=== PATIENT | male | born 1940 | race Caucasian/White ===

== ENCOUNTER → 2017-08-17 | Outpatient (CLI) | payer MEDICARE ==
[~2017-08-17] MED LIST: ASPI-555 PO
[2017-08-17 14:11] LABS: CREATININE 0.8 mg/dL (0.5-1.5)
== END | disposition home or self-care (01) ==
LOC: RAH 12:39
PROVIDERS: ATTEND Urology
DX: C61 Malignant neoplasm of prostate (principal)
CPT/HCPCS: 36415; 78306; 82565; 84520; A9503

== ENCOUNTER → 2017-08-21 | Outpatient (CLI) | payer MEDICARE ==
[~2017-08-21] MED LIST changes: +IOPAMIDOL-370 75 ML VIAL IV ONE
== END | disposition home or self-care (01) ==
LOC: RAH 08:41
PROVIDERS: ATTEND Urology
DX: C61 Malignant neoplasm of prostate (principal); K57.30 Diverticulosis of large intestine without perforation or abscess without bleeding; K76.0 Fatty (change of) liver, not elsewhere classified; N28.1 Cyst of kidney, acquired
CPT/HCPCS: 74177; Q9967

== ENCOUNTER 2017-10-10 03:43 | Inpatient (IN) | payer MEDICARE ==
[~2017-10-10] VITALS: Ht 177.8 cm; Wt 94.8 kg
[~2017-10-10 03:43] MED LIST changes: -IOPAMIDOL-370 75 ML VIAL IV ONE
[2017-10-10] MEDS ORDERED: SODIUM CHLORIDE 0.9% 1000ML 1,000 ML IV ONE ×2 (03:59→11:50)
[2017-10-10] MEDS ORDERED: ONDANSETRON HCL 4 MG/2 ML VIAL ONE ×3 (03:59→08:03)
[2017-10-10 04:06] LABS: BASOPHILS % (AUTO) 0.2 % (0.0-5.0); EOSINOPHILS % (AUTO) 0.9 % (0.0-8.0); HEMATOCRIT 38.6 % (42-54); LYMPHOCYTES % (AUTO) 8.1 % (21.0-51.0); MEAN CORPUSCULAR HEMOGLOBIN 33.4 pg (27.0-33.0); MEAN CORPUSCULAR HGB CONC 35.1 g/dL (32.0-36.0); MEAN CORPUSCULAR VOLUME 95.4 fL (79-99); MONOCYTES % (AUTO) 7.2 % (3.0-13.0); NEUTROPHILS % (AUTO) 83.6 % (40.0-77.0); PLATELET COUNT (AUTO) 169 K/uL (130-400); RED BLOOD CELL COUNT(AUTO) 4.05 MIL/uL (4.50-6.20); RED CELL DISTRIBUTION WIDTH 12.7 % (11.0-15.5)
[2017-10-10 04:30] LABS: INR 0.95 (0.85-1.15); PARTIAL THROMBOPLASTIN TIME 24.2 SEC (26.3-35.5)
[2017-10-10 04:32] LABS: B-TYPE NATRIURETIC PEPTIDE 19 pg/mL (0-100)
[2017-10-10] MEDS ORDERED: MORPHINE SULFATE 2 MG/ML 1ML SYG ONE (04:37)
[2017-10-10 04:39] LABS: CARBON DIOXIDE 20 mmol/L (21-32); CHLORIDE 100 mmol/L (101-111); CREATININE 0.7 mg/dL (0.5-1.5); GLOMERULAR FILTR. RATE CALC 116 mL/min (>60); GLUCOSE,RANDOM 164 mg/dL (70-105); POTASSIUM 5.1 mmol/L (3.5-5.1); SODIUM SERUM 135 mmol/L (136-145); UREA NITROGEN, BLOOD 17 mg/dL (7-18)
[2017-10-10 04:55] LABS: ALANINE AMINOTRANSFERASE 31 U/L (12-78); ALBUMIN 3.9 g/dL (3.5-5.0); ASPARTATE AMINOTRANSFERASE 34 U/L (10-37); BILIRUBIN,TOTAL 0.6 mg/dL (0.2-1.0); CREATINE KINASE MB < 0.5 ng/mL (0.5-3.6); CREATINE KINASE, TOTAL 115 U/L (21-232); MYOGLOBIN 25 ng/mL (10-92)
[2017-10-10] MEDS ORDERED: MORPHINE SULFATE 8 MG/ML VIAL ONE (08:04)
[2017-10-10] MEDS ORDERED: METRONIDAZOLE 500MG/100ML BAG 100 ML ONE (11:50)
[2017-10-10] MEDS ORDERED: LEVOFLOXACIN 500 MG/D5W 100 ML 100 ML ONE (11:50)
[2017-10-10 18:15] VITALS: BP 170/65
[2017-10-10 20:28] VITALS: BP 148/67
[2017-10-10] MEDS ORDERED: MORPHINE SULFATE 2 MG/ML 1ML SYG IVP PRN (21:45)
[2017-10-11] VITALS (24 sets, daily range): BP systolic 108–152; BP diastolic 56–87
[2017-10-11] MEDS: METRONIDAZOLE 500MG/100ML BAG 100 ML IVPB SCH ×4 (00:11→22:36)
[2017-10-11] MEDS: SODIUM CHLORIDE 0.9% 1000ML 1,000 ML IV SCH ×3 (00:11→17:15)
[2017-10-11] MEDS ORDERED: ONDANSETRON HCL 4 MG/2 ML VIAL IVP PRN (02:15)
[2017-10-11 05:36] LABS: HEMATOCRIT 34.3 % (42-54); MEAN CORPUSCULAR HEMOGLOBIN 34.8 pg (27.0-33.0); MEAN CORPUSCULAR HGB CONC 36.3 g/dL (32.0-36.0); NUCLEATED RED BLOOD CELLS 0.1 % (0.0-0.19); PLATELET COUNT (AUTO) 168 K/uL (130-400); RED BLOOD CELL COUNT(AUTO) 3.57 MIL/uL (4.50-6.20); RED CELL DISTRIBUTION WIDTH 12.7 % (11.0-15.5); WHITE BLOOD COUNT (AUTO) 8.4 K/uL (4.8-10.8)
[2017-10-11 05:53] LABS: CREATININE 0.8 mg/dL (0.5-1.5); POTASSIUM 3.9 mmol/L (3.5-5.1)
[2017-10-11 06:11] LABS: BAND NEUTROPHILS % (MANUAL) 1 % (0-2); EOSINOPHILS % (MANUAL) 4 % (1-6); LYMPHOCYTES % (MANUAL) 9 % (22-44); MAN.DIFF COMMENT-IMPRESSION MANUAL DIFFERENTIAL; MONOCYTES % (MANUAL) 8 % (2-9); PLATELET MORPHOLOGY COMMENT ADEQUATE; SEGMENTED NEUTROPHILS % 78 % (40-70)
[2017-10-11] MEDS ORDERED: BUPIVACAINE/EPI/PF 0.5% 30ML VIAL IJ SCH (10:45)
[2017-10-11] MEDS: LEVOFLOXACIN 500 MG/D5W 100 ML 100 ML IV SCH (12:06)
[2017-10-11] MEDS ORDERED: ONDANSETRON HCL 4 MG/2 ML VIAL ONE (12:16)
[2017-10-11] MEDS ORDERED: DEXAMETHASONE SOD PHOSPHATE 10MG/ML 1ML VIAL ONE (12:16)
[2017-10-11] MEDS ORDERED: SUCCINYLCHOLINE 200MG/10ML SYR ONE (12:16)
[2017-10-11] MEDS ORDERED: LIDOCAINE PF 2% 5ML ABBOJECT ONE (12:16)
[2017-10-11] MEDS ORDERED: GLYCOPYRROLATE 0.2 MG/ML 5 ML VIAL ONE (12:16)
[2017-10-11] MEDS ORDERED: FENTANYL CITRATE PF 50 MCG/1 ML 2ML VIAL ONE ×2 (12:16→16:33)
[2017-10-11] MEDS ORDERED: PROPOFOL 10 MG/ML 20ML VIAL IV ONE (12:17)
[2017-10-11] MEDS ORDERED: MIDAZOLAM HCL 1 MG/ML 2ML VIAL ONE (12:17)
[2017-10-11] MEDS ORDERED: EPINEPHRINE 1 MG/ML AMPULE ONE (14:31)
[2017-10-11] MEDS ORDERED: BUPIVACAINE/PF 0.5% 30ML VIAL ONE (14:31)
[2017-10-11] MEDS ORDERED: ISOVUE-370 50ML VIAL IV ONE (15:55)
[2017-10-11] MEDS ORDERED: ACETAMINOPHEN 325 MG TAB PO PRN (19:45)
[2017-10-11] MEDS ORDERED: MEPERIDINE HCL/PF 25 MG/ML 1ML VIAL IV PRN (19:45)
[2017-10-11] MEDS ORDERED: TRAMADOL HCL 50 MG TABLET PO PRN ×2 (19:45)
[2017-10-11] MEDS ORDERED: MEPERIDINE HCL/PF 25 MG/0.5 ML AMPUL IV PRN (19:52)
[2017-10-11] MEDS: DOCUSATE SODIUM 100 MG CAP PO SCH (20:32)
[2017-10-12] VITALS: BP 127/66
[2017-10-12] MEDS: SODIUM CHLORIDE 0.9% 1000ML 1,000 ML IV SCH (00:08)
[2017-10-12 04:00] VITALS: BP 137/71
[2017-10-12] MEDS: METRONIDAZOLE 500MG/100ML BAG 100 ML IVPB SCH (05:36)
[2017-10-12 07:30] VITALS: BP 126/69
[2017-10-12] MEDS: DOCUSATE SODIUM 100 MG CAP PO SCH (08:49)
[2017-10-12 11:00] VITALS: BP 126/65
[2017-10-12] MEDS: LEVOFLOXACIN 500 MG/D5W 100 ML 100 ML IV SCH (11:19)
== END 2017-10-12 17:25 | disposition home or self-care (01) | DRG 419 ==
LOC: EDH 03:43 → EDHIP 11:40 → 4AH 17:40
PROVIDERS: ADMIT Family Medicine; ATTEND Family Medicine
PROC: 0FT44ZZ Resection of Gallbladder, Percutaneous Endoscopic Approach (ICD-10-PCS; principal; 2017-10-11 15:45)
PROC: BF101ZZ Fluoroscopy of Bile Ducts using Low Osmolar Contrast (ICD-10-PCS; 2017-10-11 15:45)
DX: K81.9 Cholecystitis, unspecified (principal); C61 Malignant neoplasm of prostate; Z88.0 Allergy status to penicillin; Z88.2 Allergy status to sulfonamides
CPT/HCPCS: 36415; 71045; 74176; 74300; 76705; 78226; 80048; 80053; 82550; 82553; 83874; 83880; 84484; 85025; 85610; 85730; 88304; 93005; A9537; C1758; J0171; J0330; J1100; J1956; J2001; J2250; J2270; J2405; J2704; J3010; J3490; J7030; J7120; Q9967